=== PATIENT | female | born 1945 | race Caucasian/White ===

== ENCOUNTER → 2018-08-10 | Outpatient (CLI) | payer MEDICARE, OTHER ==
[~2018-08-10] MED LIST: BISO1TAB14 PO; CHOL200024 PO; DULA0.75 SQ-INSULIN; EZET10TA18 PO; LOSA1TAB22 PO; MULT1TAB9 PO; SIMV40TA3 PO
[2018-08-10 11:57] LABS: BASOPHILS # (AUTO) 0.04 x10^3/uL (0-0.1); BASOPHILS % (AUTO) 1 % (0-1); EOSINOPHILS # (AUTO) 0.21 x10^3/uL (0-0.4); EOSINOPHILS % (AUTO) 3 % (1-7); LYMPHOCYTES # (AUTO) 2.02 x10^3/uL (1-3.4); LYMPHOCYTES % (AUTO) 29 % (22-44); MD NO; MEAN CORPUSCULAR HEMOGLOBIN 28.4 pg (27.0-34.8); MEAN CORPUSCULAR HGB CONC 33.3 g/dL (32.4-35.8); MEAN CORPUSCULAR VOLUME 85.2 fL (80-100); MEAN PLATELET VOLUME 8.5 fL (7.4-10.4); MONOCYTES # (AUTO) 0.59 x10^3/uL (0.2-0.8); MONOCYTES % (AUTO) 8 % (2-9); NEUTROPHILS # (AUTO) 4.18 x10^3/uL (1.8-6.8); NEUTROPHILS % (AUTO) 59 % (42-75); PLATELET COUNT 258 x10^3/uL (130-400); RED BLOOD COUNT 4.93 x10^6/uL (3.82-5.3); RED CELL DISTRIBUTION WIDTH 14.6 % (9.6-15.2)
[2018-08-10 12:03] LABS: INTERNATIONAL NORMALIZED RATIO 0.98 (0.93-1.1); PROTHROMBIN TIME 10.2 Seconds (9.6-11.5)
[2018-08-10 12:06] LABS: ALBUMIN 3.7 g/dL (3.4-5.0); ANION GAP 8 mmol/L (5-15); CALCIUM 9.3 mg/dL (8.5-10.1); CHLORIDE 108 mmol/L (98-107)
[2018-08-10 12:15] LABS: ALANINE AMINOTRANSFERASE 48 U/L (12-78); ALKALINE PHOSPHATASE 87 U/L (45-117); BILIRUBIN,TOTAL 0.5 mg/dL (0.2-1.0); CREATININE 0.95 mg/dL (0.55-1.02); TOTAL PROTEIN 7.2 g/dL (6.4-8.2)
== END | disposition home or self-care (01) ==
LOC: STAR 10:45
PROVIDERS: ATTEND Specialist
DX: Z01.818 Encounter for other preprocedural examination (principal); C54.1 Malignant neoplasm of endometrium
CPT/HCPCS: 36415; 71046; 80053; 85025; 85610; 85730; 86304; 93005

== ENCOUNTER 2018-08-20 06:04 | Day surgery (SDC) | payer MEDICARE, OTHER ==
[~2018-08-20] VITALS: Ht 167.6 cm; Wt 90.7 kg
[2018-08-20] MEDS ORDERED: LACTATED RINGERS 1,000 ML IV SCH (06:24)
[2018-08-20 06:26] VITALS: BP 136/73
[2018-08-20] MEDS ORDERED: BUPIVACAINE/PF-EPI 0.25% 1:200K ONE (06:49)
[2018-08-20] MEDS ORDERED: HEPARIN 1,000 UNITS/ML, 10ML ONE (06:50)
[2018-08-20] MEDS ORDERED: INDOCYANINE GREEN 25 MG VIAL ONE (06:50)
[2018-08-20] MEDS ORDERED: FENTANYL PF 250 MCG/5ML ONE (07:15)
[2018-08-20] MEDS ORDERED: MIDAZOLAM 1 MG/ML, 2ML ONE (07:15)
[2018-08-20] MEDS ORDERED: SUCCINYLCHOLINE 20 MG/ML, 10ML ONE (07:47)
[2018-08-20] MEDS ORDERED: ONDANSETRON 2MG/ML, 2ML ONE ×2 (07:47→09:55)
[2018-08-20] MEDS ORDERED: PROPOFOL 10 MG/ML, 20ML ONE (07:47)
[2018-08-20] MEDS ORDERED: DEXAMETHASONE 4 MG/ML, 1ML ONE (07:47)
[2018-08-20] MEDS ORDERED: CEFAZOLIN 1,000 MG ONE (07:47)
[2018-08-20] MEDS ORDERED: ROCURONIUM 10 MG/ML,10ML ONE (07:47)
[2018-08-20] MEDS ORDERED: hydrALAzine 20 MG/ML, 1ML IV PRN (08:30)
[2018-08-20] MEDS ORDERED: ONDANSETRON ODT 8 MG PO PRN (08:30)
[2018-08-20] MEDS ORDERED: ONDANSETRON 2MG/ML, 2ML IV PRN (08:30)
[2018-08-20] MEDS ORDERED: PROMETHAZINE 12.5 MG SUPP PR PRN (08:30)
[2018-08-20] MEDS ORDERED: OXYcodone 5 MG/5 ML ORAL.SOL UDC PO PRN (08:30)
[2018-08-20] MEDS ORDERED: LABETALOL 5MG/ML, 20ML IV PRN (08:30)
[2018-08-20] MEDS ORDERED: SUGAMMADEX 200 MG/2 ML IVPush ONE (09:28)
[2018-08-20] MEDS ORDERED: HYDROmorphone 2 MG/ML, 1ML ONE (09:45)
[2018-08-20] MEDS ORDERED: FENTANYL PF 100 MCG/2ML ONE (09:45)
[2018-08-20] MEDS: FENTANYL PF 100 MCG/2ML IV PRN ×2 (09:45→10:05)
[2018-08-20] MEDS: HYDROmorphone 2 MG/ML, 1ML IV PRN ×3 (09:50→10:15)
[2018-08-20] MEDS ORDERED: KETOROLAC 30 MG/1 ML ONE (09:55)
[2018-08-20] MEDS ORDERED: KETOROLAC 30 MG/1 ML IVPush ONE ×2 (10:00)
[2018-08-20] MEDS ORDERED: OXYcodone 5 MG/5 ML ORAL.SOL UDC ONE (10:24)
== END 2018-08-20 13:20 | disposition home or self-care (01) ==
LOC: OUT 06:04
PROVIDERS: ATTEND Specialist
DX: C54.1 Malignant neoplasm of endometrium (principal); D25.0 Submucous leiomyoma of uterus; R59.1 Generalized enlarged lymph nodes; N88.8 Other specified noninflammatory disorders of cervix uteri; I10 Essential (primary) hypertension; E78.00 Pure hypercholesterolemia, unspecified; Z85.3 Personal history of malignant neoplasm of breast; Z90.13 Acquired absence of bilateral breasts and nipples; Z98.890 Other specified postprocedural states; Z98.49 Cataract extraction status, unspecified eye; Z72.89 Other problems related to lifestyle
CPT/HCPCS: 36415; 38572; 58571; 74018; 82962; 86850; 86900; 88307; 88309; 88331; 88333; J0330; J0690; J1100; J1170; J1644; J1885; J2250; J2405; J2704; J3010; J7120

== ENCOUNTER → 2018-09-27 | Outpatient (CLI) | payer MEDICARE, OTHER ==
[~2018-09-27] MED LIST changes: +OMNIPAQUE 350 MG/ML, 100ML BOTTLE ONE
== END | disposition home or self-care (01) ==
LOC: CFH 09:53
PROVIDERS: ATTEND Specialist
DX: K80.20 Calculus of gallbladder without cholecystitis without obstruction (principal); K82.8 Other specified diseases of gallbladder; K76.0 Fatty (change of) liver, not elsewhere classified; R60.9 Edema, unspecified; Z85.43 Personal history of malignant neoplasm of ovary
CPT/HCPCS: 74177; 82565; Q9967